=== PATIENT | female | born 1985 | race Caucasian/White ===

== ENCOUNTER 2019-05-22 23:38 | Emergency (ER) | payer BC ==
[~2019-05-22] VITALS: Ht 165.1 cm; Wt 59.0 kg
[2019-05-23] MEDS ORDERED: BUPROPION XL300 MG PO (01:13)
[2019-05-23] MEDS ORDERED: ACYCLOVIR 400400 MG PO (01:13)
[2019-05-23] MEDS ORDERED: AMITRIPTYLINE H10 M1 PO (01:14)
[2019-05-23] MEDS ORDERED: ESCITALOPRA5 MG/5 ML PO (01:14)
[2019-05-23] MEDS ORDERED: NORCO 5-325 TA1 EAC1 PO (01:36)
[2019-05-23 01:55] VITALS: BP 97/68
== END 2019-05-23 01:57 | disposition home or self-care (01) ==
LOC: ER 23:38
DX: S30.0XXA Contusion of lower back and pelvis, initial encounter (principal); W10.9XXA Fall (on) (from) unspecified stairs and steps, initial encounter; Y93.01 Activity, walking, marching and hiking; Y92.89 Other specified places as the place of occurrence of the external cause; Y99.8 Other external cause status